=== PATIENT | male | born 1990 | race Two or more races ===

== ENCOUNTER 2017-07-06 17:42 | Emergency (ER) | payer SELFPAY ==
--- NOTE | 2017-07-06 18:04 | ED Physician Documentation ---
Skin Rash - HISTORIAN Historian: patient - HPI Chief Complaint: Skin Rash Onset: days ago (2-3) Timing: worse Duration: persistent since Location: RUE, LUE, RLE, LLE Quality: itchy Where: work Further Comments: yes (26 year old male patient presents with rash on hands, feet and calf. States he works at the [employer], concerned he has scabies. C/O severe itching.) - ROS CONST: none CVS/RESP: none EYES/ENT: none GI/: none MS/SKIN/LYMPH: rash NEURO/PSYCH: none - PAST HX Past History: none Other History: none Allergies/Adverse Reactions: Allergies Allergy/AdvReac Type Severity Reaction Status Date / Time No Known Allergies Allergy Verified 07/06/17 18:35 Home Medications: Ambulatory Orders Medication Instructions Recorded Dextroamphetamine/Amphetamine 10 mg PO D 07/06/17 [Adderall 10 mg Tablet] - SOCIAL HX Smoking History: non-smoker - FAMILY HX Family History: denies: none - VITAL SIGNS Vital Signs: Vital Signs Temp Pulse Resp BP Pulse Ox 64 16 115/73 07/06/17 18:37 07/06/17 18:37 07/06/17 18:37 - REVIEWED ASSESSMENTS Nursing Assessment Reviewed: Yes Vitals Reviewed: Yes Progress - Progress Progress: Reviewed discharge instructions for scabies. Verbalized understanding. Skin Rash Physical Exam - EXAM General Appearance: mild distress Skin: warm,dry, skin rash, erythema Location: other (web spacing of fingers and feet; linear rash on lower legs) Character: linear, erythematous Symptoms: tenderness (itching) EENT: eyes nml inspection Respiratory: no resp distress CVS: reg. rate & rhythm Neuro/Psych: oriented x3, motor nml, sensation nml, mood/affect nml Discharge Clincal Impression: Scabies Clincal Impression: (Ruled Out): Scabies exposure Referrals: Primary Doctor,No [Primary Care Provider] - 2 Days Additional Instructions: Patients should massage permethrin cream thoroughly into the skin from the neck to the soles of the feet, including areas under the fingernails and toenails. Thirty grams (1 tube) is usually sufficient for a single application for an average adult. Permethrin should be removed by washing (shower or bath) after 8 to 14 hours. Treatment is often performed overnight. 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 Condition: Stable Disposition: 01 HOME, SELF-CARE Decision to Admit: NO Decision Time: 18:03
[2017-07-06 18:35] VITALS: BP 115/73
== END 2017-07-06 18:20 | disposition home or self-care (01) ==
LOC: ED 17:42
DX: B86 Scabies (principal)
CPT/HCPCS: 99283